=== PATIENT | female | born 1970 | race Hispanic/Latino ===

== ENCOUNTER 2025-04-04 10:51 | Emergency (ER) | payer OTHER ==
[~2025-04-04] VITALS: Ht 157.5 cm; Wt 99.9 kg
[~2025-04-04 10:51] MED LIST: HYDROCHLOROTH12.5 MG; RANITIDINE HCL75 MG
[2025-04-04 11:50] VITALS: BP 157/75
== END 2025-04-04 11:51 | disposition home or self-care (01) ==
LOC: ED 10:51
DX: L02.31 Cutaneous abscess of buttock (principal); I10 Essential (primary) hypertension; Z79.899 Other long term (current) drug therapy
CPT/HCPCS: 10060; 99282-25